=== PATIENT | female | born 1965 | race Caucasian/White ===

== ENCOUNTER → 2016-09-16 | Emergency (ER) | payer OTHER, SELFPAY ==
[~2016-09-16] MED LIST: KETOROLAC TROMETHAMINE INJ 30 MG/ML VIAL IV ONE; methylPREDNISolone SODIUM SUC 125 MG/2 ML VIAL IV ONE
--- NOTE | 2016-09-16 22:21 | ED.PDOC ---
History of Present Illness - General Chief Complaint: Abdominal Pain Stated Complaint: abd pain Time Seen by Provider: 09/16/16 21:54 Information Source: patient, RN notes reviewed, Vital Signs reviewed Exam Limitations: no limitations - History of Present Illness Initial Comments: Patient presents with epigastric and LUQ pain for 2 weeks. Constant, sharp and burning. + nausea, no vomiting, one episode of diarrhea. No fever or chills. + MARION. Abdominal Pain Onset Location: LLQ, epigastric Pain Radiation: flank - Left Quality: moderate, burning, steady, stabbing Timing/Duration: constant, getting worse, other - 2 weeks Improving Factors: nothing Worsening Factors: nothing Associated Symptoms: back pain, diarrhea, headache, nausea/vomiting Review of Systems - Review of Systems Constitutional: Denies: chills, diaphoresis, fever, malaise, weakness EENTM: States: no symptoms reported Respiratory: States: cough. Denies: orthopnea, short of breath, stridor, wheezing Cardiology: States: no symptoms reported Gastrointestinal/Abdominal: States: see HPI, abdominal pain, diarrhea, nausea. Denies: constipation, vomiting Genitourinary: States: no symptoms reported Musculoskeletal: States: no symptoms reported Skin: States: no symptoms reported Neurological: States: headache Endocrine: States: no symptoms reported Past Medical History (General) - Patient Medical History Hx Seizures: No Hx Stroke: No Hx Asthma: Yes Hx of COPD: Yes Hx Cardiac Disorders: No Hx Congestive Heart Failure: No Hx Pacemaker: No Hx Hypertension: Yes Hx Diabetes: Yes Hx Cancer: No Hx Hepatitis C: No Hx MRSA: No Surgical History: tonsillectomy - Vaccination History Hx Tetanus, Diphtheria Vaccination: No Hx Influenza Vaccination: No Hx Pneumococcal Vaccination: No Immunizations Up to Date: No - Social History Hx Tobacco Use: No Hx Alcohol Use: No Hx Substance Use: No Hx Substance Use Treatment: No Hx Depression: No Hx Physical Abuse: No Hx Emotional Abuse: No - Female History Patient is a Female of Child Bearing Age (10 -59 yrs old): No Patient : No - Triage Comment ED Triage Comment: she states that is hurting,,, and it is not getting any better. Family Medical History - Family History Grandparents Living Status: Hx Cardiac Disease: Yes Hx Family Diabetes: Yes Physical Exam - Physical Exam General Appearance: Alert, Comfortable, No apparent distress, Well Developed, Well Groomed, Well Hydrated, Well Nourished Neck: non-tender, full range of motion, supple, normal inspection Respiratory: chest non-tender, no respiratory distress, no accessory muscle use , wheezing - Right lung, inspiration Cardiovascular/Chest: regular rate, rhythm, no edema, no gallop, no JVD, no murmur Gastrointestinal/Abdominal: normal bowel sounds, soft, tenderness - generalized but worse in epigastric and LUQ Back Exam: normal inspection, no CVA tenderness, no vertebral tenderness Extremity: normal range of motion, non-tender, normal inspection, no pedal edema Neurologic: no motor/sensory deficits, alert, normal mood/affect, oriented x 3 Skin Exam: normal color, warm/dry Lymphatic: no adenopathy Progress - Progress Progress: 09/16/16 23:37 Discussed results with patient and . No signs of pancreatitis, kidney stone or intra-abdominal pathology. ? if prodrome to shingles outbreak given burning nature of the pain with extreme sensitivity to anything that touches her skin. Will treat imperically. - Results/Orders Results/Orders: Laboratory Tests 09/16/16 09/16/16 22:17 22:22 WBC 12.0 H RBC 5.09 Hgb 15.3 Hct 46.0 MCV 90.4 MCH 30.0 MCHC 33.2 RDW 12.3 Plt Count 293 MPV 8.5 Absolute Neuts (auto) 6.20 Absolute Lymphs (auto) 4.30 H Absolute Monos (auto) 0.90 H Absolute Eos (auto) 0.50 H Absolute Basos (auto) 0.10 Neutrophils % 51.8 Lymphocytes % 35.6 Monocytes % 7.7 Eosinophils % 4.1 Basophils % 0.8 Sodium 136 Potassium 4.2 Chloride 101 Carbon Dioxide 26 Anion Gap 13.2 BUN 42 H Creatinine 1.08 BUN/Creatinine Ratio 38.9 H Random Glucose 152 H Serum Osmolality 285.4 Calcium 10.0 Total Bilirubin 0.3 AST 12 ALT 9 L Alkaline Phosphatase 98 Serum Total Protein 7.7 Albumin 4.2 Globulin 3.5 Albumin/Globulin Ratio 1.2 Amylase 73 Lipase 42 Urine Color Yellow Urine Appearance Clear Urine pH 5.0 Ur Specific [place] 1.015 Urine Protein Negative Urine Glucose (UA) 500 H Urine Ketones Negative Urine Blood Negative Urine Nitrite Negative Urine Bilirubin Negative Urine Urobilinogen 0.2 Ur Leukocyte Esterase Negative Urine RBC 0-1 Urine WBC 10-20 H Ur Epithelial Cells 1-3 Urine Bacteria 1+ - EKG/XRAY/CT EKG: Sinus, no ST T wave changes Comments: Normal EKG XRAY: chest Xray Comments: No acute findings CT Ordered: Yes - No acute findings on abd/pelvis CT Departure - Departure Clinical Impression: Abdominal pain, Paresthesia Time of Disposition: 23:39 Disposition: Discharge to Home or Self Care Condition: Good Departure Forms: ED Discharge - Pt. Copy, Patient Portal Self Enrollment Instructions: DI for Abdominal Pain-Adult, DI for Shingles Diet: resume usual diet Activity: increase activity as tolerated Referrals: Laith Zuniga MD [Primary Care Provider] - 1-5 Days Prescriptions: Methylprednisolone [Medrol Dose Eduard] 4 mg PO DAILY #1 pack Valacyclovir HCl [Valtrex] 1 gm PO TID #21 tab Home Medications: Ambulatory Orders Metoprolol Succinate [Toprol Xl] 50 mg PO BID 11/14/14 cloNIDine HCL [Catapres] 0.1 mg PO BID 11/14/14 Fluoxetine HCl 40 mg PO DAILY 10/04/15 Canagliflozin [Invokana] 300 mg PO DAILY 03/22/16 Enalapril Maleate 20 mg PO BID 03/22/16 Gabapentin 300 mg PO TID 03/22/16 Insulin Aspart [Novolog] 10 unit SC TID 03/22/16 Insulin Detemir [Levemir Pen] 25 u SUBCU BID 03/22/16 Meloxicam [Mobic] 15 mg PO 03/22/16 Pantoprazole Sodium [Protonix] 40 mg PO ACBK #30 tab 03/22/16 Tramadol HCl 50 mg PO Q6HR PRN #15 tab 03/22/16 Methylprednisolone [Medrol Dose Eduard] 4 mg PO DAILY #1 pack 09/16/16 Valacyclovir HCl [Valtrex] 1 gm PO TID #21 tab 09/16/16
--- NOTE | 2016-09-16 22:57 | RAD ---
EXAM DESCRIPTION: X-RAY CHEST- TWO VIEWS CLINICAL HISTORY: Cough and wheezing and low oxygen saturation COMPARISON: 03/22/2016 TECHNIQUE: 2.0 views of the chest FINDINGS: There are no discrete air space infiltrates, pneumothoraces or pleural effusions. The pulmonary vascularity is normal. The cardiomediastinal silhouette is unremarkable. IMPRESSION: There are no acute lung parenchymal findings. Electronically signed by: Uriel Zimmerman MD 09/16/2016 22:55
--- NOTE | 2016-09-16 23:31 | CT ---
EXAM DESCRIPTION: CT ABDOMEN PELVIS WITHOUT IV CONTRAST CLINICAL HISTORY: 51-year-old female with left upper quadrant pain radiating to the left flank. COMPARISON: 03/22/2016. TECHNIQUE: CT of the abdomen and pelvis was performed without contrast. Oral contrast was not administered. Multiplanar reformatted images were provided. FINDINGS: Evaluation of solid organ pathology is limited secondary to lack of intravenous contrast. Within these limitations, the following observations are made. Chest: Evaluation through the lung bases reveals no focal opacity, pleural effusion or pneumothorax. Right lower lobe pulmonary micronodule measuring 3 mm, (series 2, image 14 close per. Heart size is within normal limits. No pericardial effusion. Abdomen and pelvis: The liver, gallbladder, pancreas, spleen, bilateral kidneys and bilateral adrenal glands are within normal limits. The vessels are normal in caliber. No abdominopelvic lymph nodes are noted to be pathologically enlarged by CT measurement criteria. Diverticular disease without findings to suggest diverticulitis. The bowel is within normal limits with fecal debris present throughout the large bowel. There is no abnormal bowel wall thickness or bowel dilation. No free air. No free abdominopelvic fluid collections. The appendix is within normal limits. The osseous structures ar reveal degenerative change particularly at the L4-5 level with loss of disc height, endplate sclerosis and subchondral cyst formation. IMPRESSION: 1. No specific acute intra-abdominal findings are noted to suggest etiology of the patient's abdominal pain. 2. Diverticular disease without findings to suggest diverticulitis. Electronically signed by: Hina Keating MD 09/16/2016 23:28
[2016-09-16 23:58] VITALS: BP 155/87; TEMP 97.2; O2SAT 93
== END | disposition home or self-care (01) ==
LOC: ER 21:44
DX: R10.9 Unspecified abdominal pain (principal); R20.9 Unspecified disturbances of skin sensation; J44.9 Chronic obstructive pulmonary disease, unspecified; I10 Essential (primary) hypertension; E11.9 Type 2 diabetes mellitus without complications

== ENCOUNTER 2019-02-12 17:09 | Emergency (ER) | payer SELFPAY ==
[2019-02-12] MEDS ORDERED: SODIUM CHLORIDE 0.9% 1000ML 1,000 ML IVS ONE ×2 (17:25→19:51)
[2019-02-12] MEDS ORDERED: INSULIN, REG.(HUMAN) 250 UNITS in SODIUM CHL 0.9% 250ML (AVIVA) 247.5 ML IVPB SCH ×2 (17:27)
[2019-02-12] MEDS ORDERED: INSULIN, REG.(HUMAN) 100 U/ML VIAL IV ONE (17:27)
[2019-02-12] MEDS ORDERED: SODIUM CHL 0.9% 250ML (AVIVA) 250 ML IVPB ONE ×2 (17:40→17:47)
[2019-02-12] MEDS ORDERED: INSULIN, REG.(HUMAN) 100 U/ML VIAL ONE (17:41)
[2019-02-12] MEDS ORDERED: FLUCONAZOLE 100 MG TAB ONE (20:17)
[2019-02-12] MEDS ORDERED: FLUCONAZOLE 150 MG TAB PO ONE (20:17)
[2019-02-12] MEDS ORDERED: INSULIN DETEMIR 100 UNITS/ML PEN SUBCU ONE (22:51)
--- NOTE | 2019-02-12 22:54 | ED.PDOC ---
History of Present Illness - General Chief Complaint: Diabetic Complaint Stated Complaint: hyperglycemia, nausea, dizziness Time Seen by Provider: 02/12/19 17:11 Source: patient Exam Limitations: no limitations - History of Present Illness Initial Comments: the patient is a 53-year-old female with type 2 diabetes presents secondary to nausea, urinary frequency, generalized weakness, mild headache and some dizziness progressive over the last several weeks. The patient has not been able to afford her longer acting insulin for the last month and her blood sugars have been climbing steadily. No burning when she urinates but she think she might have a small yeast infection. No back pain. The patient does feel dehydrated and that she has been drinking a lot of water. Timing/Duration: unsure Severity: moderate Improving Factors: nothing Worsening Factors: nothing Associated Symptoms: loss of appetite, malaise, nausea/vomiting, weakness Allergies/Adverse Reactions: Allergies Codeine Allergy (Verified 10/04/15 17:16) Other itching Home Medications: Ambulatory Orders Fluoxetine HCl 40 mg PO DAILY 10/04/15 Enalapril Maleate 20 mg PO BID 03/22/16 Amlodipine Besylate 10 mg PO DAILY 02/12/19 Gabapentin 100 mg PO TID 02/12/19 Insulin Regular (Human) [Novolin R U-100] 10 unit SUBCU AC 02/12/19 Omeprazole 20 mg PO DAILY 02/12/19 Simvastatin 20 mg PO DAILY 02/12/19 Review of Systems - Review of Systems Constitutional: States: malaise EENTM: States: no symptoms reported Respiratory: States: no symptoms reported Cardiology: States: no symptoms reported Gastrointestinal/Abdominal: States: nausea Genitourinary: States: frequency Musculoskeletal: States: no symptoms reported Skin: States: no symptoms reported Neurological: States: headache, weakness - generalized Endocrine: States: increased thirst, increased urine All other Systems: No Change from Baseline Past Medical History (General) - Patient Medical History Hx Seizures: No Hx Stroke: No Hx Asthma: Yes Hx of COPD: Yes Hx Cardiac Disorders: No Hx Congestive Heart Failure: No Hx Pacemaker: No Hx Hypertension: Yes Hx Diabetes: Yes Hx Cancer: No Hx Hepatitis C: No Hx MRSA: No - Vaccination History Hx Tetanus, Diphtheria Vaccination: No Hx Influenza Vaccination: No Hx Pneumococcal Vaccination: No - Social History Hx Tobacco Use: No Hx Alcohol Use: No Hx Substance Use: No Hx Substance Use Treatment: No Hx Depression: No Hx Physical Abuse: No Hx Emotional Abuse: No - Female History Patient : No Family Medical History - Family History Grandparents Living Status: Hx Cardiac Disease: Yes Hx Family Diabetes: Yes Physical Exam - Physical Exam General Appearance: Alert, No apparent distress Eye Exam: bilateral normal Ears, Nose, Throat: hearing grossly normal, normal ENT inspection Neck: full range of motion, supple Respiratory: lungs clear, normal breath sounds, no respiratory distress, no accessory muscle use Cardiovascular/Chest: normal peripheral pulses, regular rate, rhythm, no edema Peripheral Pulses: radial,right: 2+, radial,left: 2+, dorsalis pedis,right: 2+, dorsalis pedis,left: 2+ Gastrointestinal/Abdominal: non tender, soft Rectal Exam: deferred Back Exam: no CVA tenderness, no vertebral tenderness Extremity: non-tender, normal inspection, no pedal edema, normal capillary refill 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, alert, normal mood/affect, oriented x 3 Skin Exam: normal color Comments: Vital Signs - 24 hr 02/12/19 02/12/19 02/12/19 17:18 18:00 19:00 Temperature 98.6 F Pulse Rate [ 88 76 78 left brachial] Respiratory 16 12 20 Rate Blood Pressure 90/62 101/76 127/52 [left brachial] O2 Sat by Pulse 91 L 96 96 Oximetry 02/12/19 02/12/19 20:33 21:00 Temperature Pulse Rate [ 68 68 left brachial] Respiratory 18 14 Rate Blood Pressure 131/75 138/73 [left brachial] O2 Sat by Pulse 94 L Oximetry Progress - Progress Progress: 02/12/19 22:56 the patient is a 53-year-old female presenting to the emergency room with uncontrolled diabetes and marked hyperglycemia. She has severe dehydration and acute renal failure from it. She is not acidotic. she was mildly hypotensive upon arrival due to the dehydration. This has corrected. The patient was placed on a insulin drip for correction and her blood sugars have come down into the 200s from approximately 700. She is tolerating oral intake at this point. She has had a couple of liters of IV fluids. Her creatinine today is approximately 1.8. She needs to increase her regular insulin dosages to 15 units plus sliding scale before smaller meals and 20 units plus sliding scale before larger meals. Additionally she does need to do an 11 PM blood sugar check and administer 5 units plus sliding scale at that time. the patient needs to follow back up with her primary care doctor in the coming week with a diary of her blood sugars for further insulin adjustment. It will likely take several visits to get her medication adjusted correctly to control her blood sugars long-term on the regular insulin alone. - Results/Orders Results/Orders: Laboratory Results - last 24 hr 02/12/19 02/12/19 02/12/19 17:27 17:27 17:27 WBC 6.5 RBC 4.14 L Hgb 13.0 Hct 38.8 MCV 93.6 MCH 31.3 H MCHC 33.5 RDW 12.0 Plt Count 254 MPV 8.3 Absolute Neuts (auto) 4.30 Absolute Lymphs (auto) 1.50 Absolute Monos (auto) 0.50 Absolute Eos (auto) 0.10 Absolute Basos (auto) 0.00 Neutrophils % 66.4 Lymphocytes % 23.5 Monocytes % 8.2 Eosinophils % 1.2 Basophils % 0.7 pCO2 pO2 HCO3 ABG pH ABG O2 Saturation ABG Base Excess ABG Deoxyhemoglobin Oxyhemoglobin % Carboxyhemoglobin % Methemoglobin % Sat Calc Total Hemoglobin Sodium 128 L Potassium 4.2 Chloride 92 L Carbon Dioxide 22 Anion Gap 18.2 H BUN 33 H Creatinine 1.78 H BUN/Creatinine Ratio 18.5 POC Glucose < 400 H Random Glucose 629 H* Serum Osmolality 293.8 Calcium 9.6 Magnesium 1.9 Total Bilirubin 0.7 AST 20 ALT 12 Alkaline Phosphatase 81 Serum Total Protein 7.3 Albumin 3.6 Globulin 3.7 H Albumin/Globulin Ratio 1.0 L Amylase 61 Lipase 57 H Urine Color Urine Appearance Urine pH Ur Specific [place] Urine Protein Urine Glucose (UA) Urine Ketones Urine Blood Urine Nitrite Urine Bilirubin Urine Urobilinogen Ur Leukocyte Esterase Urine RBC Urine WBC Ur Epithelial Cells Amorphous Sediment Urine Bacteria 02/12/19 02/12/19 02/12/19 17:45 18:15 19:04 WBC RBC Hgb Hct MCV MCH MCHC RDW Plt Count MPV Absolute Neuts (auto) Absolute Lymphs (auto) Absolute Monos (auto) Absolute Eos (auto) Absolute Basos (auto) Neutrophils % Lymphocytes % Monocytes % Eosinophils % Basophils % pCO2 33 pO2 40 L* HCO3 22.0 ABG pH 7.440 ABG O2 Saturation 79.8 L ABG Base Excess -1.0 ABG Deoxyhemoglobin 19.7 H Oxyhemoglobin % 77.9 L Carboxyhemoglobin % 0.6 Methemoglobin % Sat 1.8 H Calc Total Hemoglobin 12.5 Sodium Potassium Chloride Carbon Dioxide Anion Gap BUN Creatinine BUN/Creatinine Ratio POC Glucose 376 H Random Glucose Serum Osmolality Calcium Magnesium Total Bilirubin AST ALT Alkaline Phosphatase Serum Total Protein Albumin Globulin Albumin/Globulin Ratio Amylase Lipase Urine Color Yellow Urine Appearance Clear Urine pH 5.5 Ur Specific [place] <= 1.005 Urine Protein Negative Urine Glucose (UA) 500 H Urine Ketones 15 H Urine Blood Negative Urine Nitrite Negative Urine Bilirubin Moderate Urine Urobilinogen 0.2 Ur Leukocyte Esterase Negative Urine RBC 0-1 Urine WBC 3-5 H Ur Epithelial Cells 3-5 Amorphous Sediment 1+ Urine Bacteria 0 02/12/19 02/12/19 21:14 22:46 WBC RBC Hgb Hct MCV MCH MCHC RDW Plt Count MPV Absolute Neuts (auto) Absolute Lymphs (auto) Absolute Monos (auto) Absolute Eos (auto) Absolute Basos (auto) Neutrophils % Lymphocytes % Monocytes % Eosinophils % Basophils % pCO2 pO2 HCO3 ABG pH ABG O2 Saturation ABG Base Excess ABG Deoxyhemoglobin Oxyhemoglobin % Carboxyhemoglobin % Methemoglobin % Sat Calc Total Hemoglobin Sodium Potassium Chloride Carbon Dioxide Anion Gap BUN Creatinine BUN/Creatinine Ratio POC Glucose 267 H 295 H Random Glucose Serum Osmolality Calcium Magnesium Total Bilirubin AST ALT Alkaline Phosphatase Serum Total Protein Albumin Globulin Albumin/Globulin Ratio Amylase Lipase Urine Color Urine Appearance Urine pH Ur Specific [place] Urine Protein Urine Glucose (UA) Urine Ketones Urine Blood Urine Nitrite Urine Bilirubin Urine Urobilinogen Ur Leukocyte Esterase Urine RBC Urine WBC Ur Epithelial Cells Amorphous Sediment Urine Bacteria Departure - Departure Clinical Impression: Hyperglycemia due to type 1 diabetes mellitus, Dehydration Acute renal failure Qualifiers: Acute renal failure type: unspecified Qualified Code(s): N17.9 - Acute kidney failure, unspecified Hypotension Qualifiers: Hypotension type: orthostatic hypotension Qualified Code(s): I95.1 - Orthostatic hypotension Disposition: Discharge to Home or Self Care Condition: Fair Departure Forms: ED Discharge - Pt. Copy, Patient Portal Self Enrollment Instructions: DI for Diabetes Type 1 -- Adult Diet: diabetic diet Activity: increase activity as tolerated Referrals: Laith Zuniga MD [Primary Care Provider] - 1-5 Days Home Medications: Ambulatory Orders Fluoxetine HCl 40 mg PO DAILY 10/04/15 Enalapril Maleate 20 mg PO BID 03/22/16 Amlodipine Besylate 10 mg PO DAILY 02/12/19 Gabapentin 100 mg PO TID 02/12/19 Insulin Regular (Human) [Novolin R U-100] 10 unit SUBCU AC 02/12/19 Omeprazole 20 mg PO DAILY 02/12/19 Simvastatin 20 mg PO DAILY 02/12/19 Additional Instructions: the patient is a 53-year-old female presenting to the emergency room with uncontrolled diabetes and marked hyperglycemia. She has severe dehydration and acute renal failure from it. She is not acidotic. she was mildly hypotensive upon arrival due to the dehydration. This has corrected. The patient was placed on a insulin drip for correction and her blood sugars have come down into the 200s from approximately 700. She is tolerating oral intake at this point. She has had a couple of liters of IV fluids. Her creatinine today is approximately 1.8. She needs to increase her regular insulin dosages to 15 units plus sliding scale before smaller meals and 20 units plus sliding scale before larger meals. Additionally she does need to do an 11 PM blood sugar check and administer 5 units plus sliding scale at that time. the patient needs to follow back up with her primary care doctor in the coming week with a diary of her blood sugars for further insulin adjustment. It will likely take several visits to get her medication adjusted correctly to control her blood sugars long-term on the regular insulin alone.
[2019-02-12 23:23] VITALS: BP 135/66; TEMP 98.1; O2SAT 95
== END 2019-02-12 23:18 | disposition home or self-care (01) ==
LOC: ER 17:09
DX: E10.65 Type 1 diabetes mellitus with hyperglycemia (principal); N17.9 Acute kidney failure, unspecified; E86.0 Dehydration; I95.1 Orthostatic hypotension; E87.1 Hypo-osmolality and hyponatremia; R11.2 Nausea with vomiting, unspecified; J44.9 Chronic obstructive pulmonary disease, unspecified; I10 Essential (primary) hypertension; Z79.899 Other long term (current) drug therapy; Z79.4 Long term (current) use of insulin; Z88.5 Allergy status to narcotic agent
CPT/HCPCS: 36415; 36416; 36600; 80053; 81001; 82150; 82803; 82805; 82948; 83690; 83735; 85025; J1815; J7030

== ENCOUNTER → 2019-06-29 | Outpatient (CLI) | payer BC ==
--- NOTE | 2019-06-29 13:46 | US ---
EXAM DESCRIPTION: Carotid Duplex: ULTRASOUND. CLINICAL HISTORY: 53 years Female HYPERLIPIDEMIA COMPARISON: None. TECHNIQUE: Transcutaneous scanning utilizing bryan-scale and Doppler modes to evaluate the bilateral carotid systems and vertebral arteries. Percentage of diameter of stenosis or no stenosis recorded will be based upon NASCET criteria. FINDINGS: Peak systolic/end diastolic (CM-Sec) CCA Right 73/12 Left 63/16. ICA Right proximal 42/16, distal 47/0. Left proximal 78/30, mid 57/20. Vertebral Right 40/13 Left 37/9. ECA (PS Only) Right 50 left 69. ICA/CCA peak systolic ratio: Right 0.6 Left 1.2 ICA/CCA end diastolic ratio: Right 0.0 Left 1.9 Vertebral arteries: antegrade flow. Comments: Atherosclerotic calcification in the bilateral common carotid bulbs and at the bifurcations and proximal ICAs. Waveforms unremarkable. Right mid bulb: 34% area stenosis and 45% diameter stenosis. Proximal right ICA: 20% area stenosis and 16% diameter stenosis. Minimal spectral broadening distal left ICA. Left mid bulb: 45% area stenosis and 59% diameter stenosis. Left proximal ICA: 76% area stenosis and 59% diameter stenosis. IMPRESSION: 1. Doppler evaluation of the bilateral carotid systems and vertebral arteries shows no hemodynamically significant stenoses.. However, grayscale evaluation of the left proximal ICA showing critical area stenosis and approximately 60% diameter stenosis. Consider correlation with CTA. 2. Significant amount of plaque seen in the left common carotid bifurcation. Bilateral vertebral arteries showed antegrade-cephalad flow. Electronically signed by: Grayson Philippe MD 06/29/2019 1:44 PM CDT
--- NOTE | 2019-07-02 11:48 | MAM ---
EXAM DESCRIPTION: 3D Screening BILATERAL : Digital Mammography. CLINICAL HISTORY: 53 years Female SCREENING . No complaints. No personal or family history of breast cancer. Menarche age 11. Childbirth. Postmenopausal 25 years. No HRT. Lifetime risk of developing breast cancer (Tyrer-Cuzick model)(%): 7.4. COMPARISON: 2-D digital screening bilateral mammography second of December 2011.. No prior reports available. TECHNIQUE: Bilateral CC and MLO projection full-field images, digital tomosynthesis mammographic technique. Bilateral digital 2-D full-field MLO images. CAD not available for tomosynthesis or 2-D images. FINDINGS: The breast parenchymal density pattern is: Scattered areas of fibroglandular density. No skin thickening or nipple retraction. Bilateral increasing vascular calcifications. Bilateral solitary microcalcifications are increasing. Bilateral axillary and intramammary lymph nodes. No new focal, stellate mass or density, focal asymmetry , and no suspicious microcalcifications bilaterally. Stable mammograms compared to prior study. Taking into account, differences in mammographic technique. IMPRESSION: Benign exam. BIRAD CATEGORY: 2 BENIGN FINDINGS. RECOMMENDATIONS: FOLLOW UP: Routine digital bilateral mammographic screening, one year interval from June 2019. Written communication explaining the IMPRESSION and follow-up, will be mailed to the patient and referring health care provider. According to the [employer], yearly mammograms are recommended starting at age 40 and continuing as long as a woman is in good health. Any breast change noted on a breast self-exam should be reported promptly to the patient's healthcare provider. Breast MRI is recommended for women with an approximately 20-25% or greater lifetime risk of breast cancer, including women with a strong family history of breast or ovarian cancer and women who have been treated for Hodgkin's disease. A negative mammographic report should not delay tissue diagnosis in patients with significant clinical history or physical findings. Extremely dense breast tissue limits the sensitivity of digital mammography. Electronically signed by: Grayson Philippe MD 07/02/2019 11:47 AM [employer]ARING THER[employer]
== END ==
LOC: US 09:51
PROVIDERS: ATTEND Nurse Practitioner Family
DX: Z12.31 Encounter for screening mammogram for malignant neoplasm of breast (principal); I65.23 Occlusion and stenosis of bilateral carotid arteries; E78.5 Hyperlipidemia, unspecified

== ENCOUNTER → 2019-09-11 | Outpatient (CLI) | payer BC ==
--- NOTE | 2019-09-11 13:55 | RAD ---
EXAM DESCRIPTION: Cervical Spine, 2-3 Views CLINICAL HISTORY: 54 years Female, NECK PAIN COMPARISON: None. FINDINGS: Three views of the cervical spine were obtained. The cervical spine is well seen only through the C6 level of the lateral view. With this in mind, the vertebral body fracture or subluxation is identified. Minimal disc space narrowing at C5-6. Soft tissue calcifications in both sides of the neck are likely vascular. IMPRESSION: Limited visualization of the lower cervical spine with mild degenerative changes at C5-6 but no acute cervical spine abnormality. Bilateral carotid artery disease. Ultrasound was performed on June 29, 2019. Electronically signed by: Waldo Barajas MD 09/11/2019 1:54 PM [facility]
--- NOTE | 2019-09-11 13:57 | RAD ---
EXAM DESCRIPTION: Shoulder,Right 2 or More Views CLINICAL HISTORY: 54 years Female, SHOULDER PAIN COMPARISON: None. FINDINGS: Three views of the right shoulder show no acute fracture or malalignment. The right AC joint is unremarkable. No soft tissue abnormality. IMPRESSION: Negative exam. Electronically signed by: Waldo Barajas MD 09/11/2019 1:55 PM [facility]
== END ==
LOC: RAD 11:21
PROVIDERS: ATTEND Nurse Practitioner Family
DX: M54.12 Radiculopathy, cervical region (principal); M47.892 Other spondylosis, cervical region; I77.9 Disorder of arteries and arterioles, unspecified; M25.519 Pain in unspecified shoulder

== ENCOUNTER → 2019-12-21 | Outpatient (CLI) | payer BC ==
--- NOTE | 2019-12-21 16:03 | CT ---
EXAM DESCRIPTION: Abdomen/Pelvis w/Contrast CLINICAL HISTORY: ABDOMINAL PAIN THROUGH TO BACK COMPARISON: September 16, 2016 TECHNIQUE: CT of the abdomen and Pelvis was performed with IV contrast. This exam was performed according to our departmental dose-optimization program, which includes automated exposure control, adjustment of the mA and/or kV according to patient size and/or use of iterative reconstruction technique. FINDINGS: No lung base abnormality. No pneumoperitoneum, adenopathy or ascites. Mural calcification in the abdominal aorta without aneurysm. Suspect tiny hiatal hernia. No calcified gallstone. The liver, spleen, pancreas, adrenals and kidneys are unremarkable. No dilated small bowel loops or mesenteric inflammation. No bladder wall thickening or bladder calcification. The uterus is surgically absent. The ovaries are present and otherwise unremarkable. No colonic wall thickening or pericolonic inflammation. There are a few right-sided colonic diverticulosis without diverticulitis. Normal appendix. No hernia or other abdominal wall lesion. Degenerative disc disease at L4-5. No additional bone lesion. IMPRESSION: Colonic diverticulosis, but no diverticulitis or additional abnormality in the abdomen or pelvis to explain provided history. Moderately advanced degenerative disc disease at L4-5. Probable small hiatal hernia. Electronically signed by: Waldo Barajas MD 12/21/2019 4:01 PM CDT
== END ==
LOC: CT 14:48
PROVIDERS: ATTEND Nurse Practitioner Family
DX: K57.30 Diverticulosis of large intestine without perforation or abscess without bleeding (principal); K44.9 Diaphragmatic hernia without obstruction or gangrene; M51.36 Other intervertebral disc degeneration, lumbar region